=== PATIENT | female | born 1955 | race Caucasian/White ===

== ENCOUNTER 2021-01-25 14:17 | Inpatient (IN) | payer OTHER ==
[~2021-01-25] VITALS: Ht 170.2 cm; Wt 76.3 kg
--- NOTE | 2021-01-25 14:50 | NUR ---
PT BIB EMS FROM [facility] FOR POSSIBLE UTI. PT A&O X 1, WHICH IS BASELINE PER EMS.EMS STATES PT SPO2 90 RA AND APPLIED O2 AND SPO2 WENT UP TO 95%. PT NOT RESPONDIONG VERBALLY TO QUESTIONS BUT WILL OCCASIONALLY NOD. PIV STARTED BY EMS SHIP/REC/DOC CONTROL AND THEY GAVE 250 ML NS.
[2021-01-25 15:26] LABS: MICROSCOPIC INDICATED
[2021-01-25 15:28] LABS: ALBUMIN 3.1 g/dL (3.4-5.0); ANION GAP 13 mmol/L (5-15); CALCIUM 8.7 mg/dL (8.5-10.1); CHLORIDE 103 mmol/L (98-107); CREATININE 0.78 mg/dL (0.55-1.02)
[2021-01-25] MEDS ORDERED: SODIUM CHLORIDE FLUSH 10ML SYR IVF ONE (15:30)
[2021-01-25 15:31] LABS: BASOPHILS % (AUTO) 1 % (0-1); EOSINOPHILS % (AUTO) 1 % (1-7); LYMPHOCYTES % (AUTO) 21 % (22-44); MEAN CORPUSCULAR HGB CONC 33.8 g/dL (32.4-35.8); MEAN PLATELET VOLUME 8.4 fL (7.4-10.4); MONOCYTES % (AUTO) 11 % (2-9); NEUTROPHILS % (AUTO) 67 % (42-75); PLATELET COUNT 174 x10^3/uL (130-400); RED BLOOD COUNT 5.35 x10^6/uL (3.82-5.3); RED CELL DISTRIBUTION WIDTH 14.1 % (9.6-15.2); TROPONIN I 0.016 ng/mL (0.000-0.045)
--- NOTE | 2021-01-25 17:19 | NUR ---
PT OFF THE FLOOR TO CT
[2021-01-25] MEDS ORDERED: PHARMACY MAY ADJ FOR RENAL FX MC PRN (17:30)
[2021-01-25] MEDS ORDERED: OMNIPAQUE 350 MG/ML, 75ML BOTTLE ONE (17:35)
[2021-01-25] MEDS ORDERED: ENOXAPARIN 40 MG/0.4 ML ONE (17:45)
[2021-01-25] MEDS: ENOXAPARIN 40 MG/0.4 ML SQ SCH (17:49)
[2021-01-25] MEDS: SODIUM CHLORIDE 0.9% 1,000 ML IV SCH (17:49)
--- NOTE | 2021-01-25 18:30 | NUR ---
THROUGHPUT: DR SANDHU NOTIFIED OF +CITLALY GOLDBERG TO CHANGE OBS ADMIT TO INPATIENT ADMIT.
--- NOTE | 2021-01-25 19:00 | NUR ---
Report from Velia MARSH
--- NOTE | 2021-01-25 19:46 | NUR ---
COVID swab redone as req by lab. Pt tolerated well. Walked sample to lab
--- NOTE | 2021-01-25 20:07 | NUR ---
Report to Patricia MARSH
[2021-01-25] MEDS: INSULIN LISPRO 100 UNITS/ML, PEN SQ-INSULIN SCH (21:00)
[2021-01-25 21:59] VITALS: BP 118/81
[2021-01-25] MEDS: FAMOTIDINE 20 MG/2 ML IVPush SCH (22:04)
[2021-01-26 00:10] VITALS: BP 137/80
[2021-01-26] MEDS: SODIUM CHLORIDE 0.9% 1,000 ML IV SCH ×2 (05:41→16:30)
[2021-01-26 06:06] LABS: BASOPHILS % (AUTO) 1 % (0-1); EOSINOPHILS % (AUTO) 2 % (1-7); LYMPHOCYTES % (AUTO) 18 % (22-44); MEAN CORPUSCULAR HEMOGLOBIN 29.9 pg (27.0-34.8); MEAN CORPUSCULAR HGB CONC 33.5 g/dL (32.4-35.8); MEAN PLATELET VOLUME 7.6 fL (7.4-10.4); MONOCYTES % (AUTO) 14 % (2-9); NEUTROPHILS % (AUTO) 65 % (42-75); PLATELET COUNT 166 x10^3/uL (130-400); RED BLOOD COUNT 5.08 x10^6/uL (3.82-5.3); RED CELL DISTRIBUTION WIDTH 13.9 % (9.6-15.2)
[2021-01-26 06:09] LABS: ANION GAP 9 mmol/L (5-15); CALCIUM 8.4 mg/dL (8.5-10.1); CHLORIDE 106 mmol/L (98-107); CREATININE 0.41 mg/dL (0.55-1.02)
[2021-01-26] MEDS: INSULIN LISPRO 100 UNITS/ML, PEN SQ-INSULIN SCH ×4 (07:00→22:09)
[2021-01-26 08:27] VITALS: BP 131/82
[2021-01-26] MEDS: FAMOTIDINE 20 MG/2 ML IVPush SCH ×2 (08:52→20:18)
[2021-01-26] MEDS: DEXAMETHASONE 1 MG TABLET PO SCH (12:22)
[2021-01-26 12:24] VITALS: BP 129/81
[2021-01-26] MEDS: ENOXAPARIN 40 MG/0.4 ML SQ SCH (17:16)
[2021-01-26 20:23] VITALS: BP 133/92
[2021-01-27] MEDS: SODIUM CHLORIDE 0.9% 1,000 ML IV SCH (02:16)
[2021-01-27] MEDS: INSULIN LISPRO 100 UNITS/ML, PEN SQ-INSULIN SCH ×4 (07:00→20:17)
[2021-01-27 07:57] VITALS: BP 128/90
[2021-01-27] MEDS: FAMOTIDINE 20 MG/2 ML IVPush SCH (08:06)
[2021-01-27] MEDS: DEXAMETHASONE 1 MG TABLET PO SCH (08:06)
[2021-01-27 14:00] VITALS: BP 130/91
[2021-01-27] MEDS: ENOXAPARIN 40 MG/0.4 ML SQ SCH (17:22)
[2021-01-27 20:14] VITALS: BP 120/79
[2021-01-27] MEDS: FAMOTIDINE 20 MG TABLET PO SCH (20:26)
[2021-01-28 02:14] VITALS: BP 145/83
[2021-01-28] MEDS: INSULIN LISPRO 100 UNITS/ML, PEN SQ-INSULIN SCH ×4 (07:00→20:08)
[2021-01-28 08:30] VITALS: BP 131/83
[2021-01-28] MEDS: DEXAMETHASONE 1 MG TABLET PO SCH (10:33)
[2021-01-28 13:07] VITALS: BP 129/84
[2021-01-28] MEDS: ENOXAPARIN 40 MG/0.4 ML SQ SCH (16:31)
[2021-01-28 19:31] VITALS: BP 95/59
[2021-01-28] MEDS: FAMOTIDINE 20 MG TABLET PO SCH (20:10)
[2021-01-29 02:00] VITALS: BP 137/84
[2021-01-29 06:34] VITALS: BP 142/95
[2021-01-29] MEDS: INSULIN LISPRO 100 UNITS/ML, PEN SQ-INSULIN SCH ×4 (07:40→20:20)
[2021-01-29] MEDS: DEXAMETHASONE 1 MG TABLET PO SCH (08:49)
[2021-01-29 13:08] VITALS: BP 107/69
[2021-01-29] MEDS: ENOXAPARIN 40 MG/0.4 ML SQ SCH (17:37)
[2021-01-29 19:20] VITALS: BP 116/73
[2021-01-29] MEDS: FAMOTIDINE 20 MG TABLET PO SCH (20:14)
[2021-01-30 00:25] VITALS: BP 132/91
[2021-01-30] MEDS: INSULIN LISPRO 100 UNITS/ML, PEN SQ-INSULIN SCH ×4 (07:13→20:18)
[2021-01-30 08:44] VITALS: BP 124/84
[2021-01-30] MEDS: DEXAMETHASONE 1 MG TABLET PO SCH (09:34)
[2021-01-30 12:43] VITALS: BP 127/79
[2021-01-30] MEDS: ENOXAPARIN 40 MG/0.4 ML SQ SCH (16:36)
[2021-01-30 18:51] VITALS: BP 120/82
[2021-01-30] MEDS: FAMOTIDINE 20 MG TABLET PO SCH (20:10)
[2021-01-31 00:59] VITALS: BP 111/81
[2021-01-31] MEDS ORDERED: DEXA1TAB5 PO (07:34)
[2021-01-31] MEDS ORDERED: FAMO20TA7 PO (07:34)
[2021-01-31] MEDS: DEXAMETHASONE 1 MG TABLET PO SCH (09:01)
[2021-01-31] MEDS: INSULIN LISPRO 100 UNITS/ML, PEN SQ-INSULIN SCH ×3 (09:01→16:40)
[2021-01-31 09:36] VITALS: BP 149/94
[2021-01-31 14:07] VITALS: BP 101/65
[2021-01-31] MEDS ORDERED: FAMOTIDINE 20 MG TABLET PO SCH (21:00)
== END 2021-01-31 18:01 | DRG 179 ==
LOC: ED 17:47 → EDIP 18:18 → OBSVTOIN 18:18 → 3N 20:43
PROVIDERS: ADMIT Hospitalist; ATTEND Hospitalist
PROC: 0T9B70Z Drainage of Bladder with Drainage Device, Via Natural or Artificial Opening (ICD-10-PCS; principal; 2021-01-25)
DX: U07.1 COVID-19 (principal); R09.02 Hypoxemia; F02.80 Dementia in other diseases classified elsewhere, unspecified severity, without behavioral disturbance, psychotic disturbance, mood disturbance, and anxiety; G30.0 Alzheimer's disease with early onset; E11.65 Type 2 diabetes mellitus with hyperglycemia
CPT/HCPCS: 36415; 71045; 71275; 80048; 81001; 82040; 82565; 82962; 84443; 84484; 85025; 85379; 87635; 93005; 96372; 96374; 99285; G0378; J1650; Q9967; J1815; J7030